=== PATIENT | female | born 1960 | race Asian ===

== ENCOUNTER 2016-08-16 08:35 | Outpatient (CLI) | payer OTHER | END 2016-08-16 20:25 | disposition home or self-care (01) | LOC: US 08:35 | DX: R10.13 Epigastric pain (principal) ==

== ENCOUNTER 2020-05-30 08:23 | Outpatient (CLI) | payer OTHER | END 2020-05-30 21:28 | disposition home or self-care (01) | LOC: MAMMO 08:23 | PROVIDERS: ATTEND Obstetrics & Gynecology | DX: Z12.31 Encounter for screening mammogram for malignant neoplasm of breast (principal) ==

== ENCOUNTER 2020-07-05 08:26 | Outpatient (CLI) | payer OTHER | END 2020-07-05 21:04 | disposition home or self-care (01) | LOC: MAMMO 08:26 | PROVIDERS: ATTEND Obstetrics & Gynecology | DX: R92.8 Other abnormal and inconclusive findings on diagnostic imaging of breast (principal) ==

== ENCOUNTER 2021-01-09 12:53 | Outpatient (CLI) | payer OTHER | END 2021-01-09 20:36 | disposition home or self-care (01) | LOC: MAMMO 12:53 | PROVIDERS: ATTEND Obstetrics & Gynecology | DX: R92.8 Other abnormal and inconclusive findings on diagnostic imaging of breast (principal) | CPT/HCPCS: G0279 ==

== ENCOUNTER 2021-08-16 09:03 | Outpatient (CLI) | payer OTHER | END 2021-08-16 21:24 | disposition home or self-care (01) | LOC: MAMMO 09:03 | PROVIDERS: ATTEND Obstetrics & Gynecology | DX: Z12.31 Encounter for screening mammogram for malignant neoplasm of breast (principal) ==

== ENCOUNTER 2023-01-08 08:30 | Outpatient (CLI) | payer OTHER | END 2023-01-08 18:58 | disposition home or self-care (01) | LOC: MAMMO 08:30 | PROVIDERS: ATTEND Obstetrics & Gynecology | DX: Z12.31 Encounter for screening mammogram for malignant neoplasm of breast (principal) ==